=== PATIENT | female | born 1940 | race Caucasian/White ===

== ENCOUNTER 2022-05-20 17:07 | Emergency (ER) | payer MEDICARE, SELFPAY ==
--- NOTE | 2022-05-20 17:15 | ED.SKABFB ---
HPI - Skin/Abscess/Foreign Bdy General Chief complaint: Skin/Abscess/Foreign Body Stated complaint: Insect Bite Time Seen by Provider: 05/20/22 17:09 Source: patient Mode of arrival: ambulatory Limitations: no limitations History of Present Illness HPI narrative: Ms. Hudson is an 82-year-old female patient presenting to the clinic today with complaints of possible insect bite/sting. She reports she has multiple insect bites to the bilateral lower legs near her ankles/feet and to the back of her right arm and around her left elbow. She reports that they are raised and itchy. Mildly tender Related Data Home Medications Medication Instructions Recorded Confirmed citalopram 10 mg tablet 10 mg PO DAILY 05/20/22 05/20/22 gabapentin 300 mg capsule 300 mg PO DIRECTED 05/20/22 05/20/22 levothyroxine 150 mcg tablet 150 mcg PO DAILY 05/20/22 05/20/22 peg 400-propylene glycol 0.4 %-0.3 1 drp EACH EYE DIRECTED 05/20/22 05/20/22 % eye drops (Systane Ultra) Allergies Allergy/AdvReac Type Severity Reaction Status Date / Time No Known Allergies Allergy Verified 05/20/22 17:27 Review of Systems Review of Systems: Pertinent positives per HPI. Patient denies any fever, chills, headache, visual changes, dizziness, cough, runny nose, sore throat, shortness of breath, chest pain, palpitations, nausea, vomiting, diarrhea, constipation, abdominal pain, or any urinary issues. PMFSH Comments At the time of my signature, I reviewed and agree with the nursing past medical, surgical, social, and family history. There is no relevant family history pertinent to the patient complaint. Exam Narrative: General: Well-developed, well nourished, in no apparent distress Head: Normocephalic, atraumatic. Cardio: Regular rate and rhythm, s1 and s2 normal, no murmur appreciated. Resp: Clear to auscultation bilaterally, no rhonchi, rales, wheezing or rubs. Integumentary: Delight, warm, and dry, intact without lesion, red raised itchy rash with mild induration blistered areas that appear to be from insect bites to her right ankle, left foot, right upper arm, and left elbow. Course Course Emergency Course: Portions of this record may have been created with voice recognition software. Level of Care: Express Care Visit Vital Signs Vital signs: Vital signs reviewed MDM - Skin/Abscess/Foreign Bdy MDM Narrative Medical decision making narrative: At the time of visit patient is resting comfortably on the exam table. I suspect the patient has insect bites to her extremities. I will give her a course of prednisone and place her on some triamcinolone cream to apply to the affected areas. Supportive measures were discussed with the patient she voiced understanding of discharge instructions Differential Diagnosis Differential diagnosis: Likely urticaria, insect bites and contact dermatitis Discharge Plan Discharge Clinical Impression: Insect bite Qualifiers: Encounter type: initial encounter Site of insect bite: lower leg Laterality: right Qualified Code(s): S80.861A - Insect bite (nonvenomous), right lower leg, initial encounter Patient Disposition: Home, Self-Care Condition: Stable Instructions: Antibiotic Form, Insect Bite or Sting (ED), General Allergic Reaction (ED) Additional Instructions: May take Benadryl 25 to 50 mg every 6 hours as needed for itching/swelling Prednisone as prescribed Apply triamcinolone cream as prescribed Follow-up with your PCP in 3 to 5 days if symptoms persist or sooner if they worsen Prescriptions: New prednisone 20 mg tablet 40 mg PO DAILY 5 Days Qty: 10 0RF triamcinolone acetonide 0.1 % cream 1 applic topical BID 7 Days Qty: 30 0RF No Action citalopram 10 mg tablet 10 mg PO DAILY levothyroxine 150 mcg tablet 150 mcg PO DAILY gabapentin 300 mg capsule 300 mg PO DIRECTED Systane Ultra 0.4-0.3 % drops 1 drp EACH EYE DIRECTED Follow-up/Refer
[2022-05-20 17:22] VITALS: BP 137/81; PULSE 72; RESP 16; TEMP 36.9; O2SAT 99
== END 2022-05-20 17:31 | disposition home or self-care (01) ==
PROVIDERS: Emergency Provider Nurse Practitioner Family
DX: S90.561A Insect bite (nonvenomous), right ankle, initial encounter (principal); S90.862A Insect bite (nonvenomous), left foot, initial encounter; S40.861A Insect bite (nonvenomous) of right upper arm, initial encounter; S50.362A Insect bite (nonvenomous) of left elbow, initial encounter; W57.XXXA Bitten or stung by nonvenomous insect and other nonvenomous arthropods, initial encounter; K21.9 Gastro-esophageal reflux disease without esophagitis; E03.9 Hypothyroidism, unspecified; G62.9 Polyneuropathy, unspecified
CPT/HCPCS: 99203; G0463